=== PATIENT | female | born 1985 | race Caucasian/White ===

== ENCOUNTER 2025-03-07 22:02 | Emergency (ER) | payer SELFPAY ==
[~2025-03-07] VITALS: Ht 152.4 cm; Wt 69.4 kg
[2025-03-07 22:28] VITALS: TEMP 36.7; O2SAT 100
[2025-03-08] MEDS: LIDOCAINE 5% PATCH TOP STA (00:50)
[2025-03-08] MEDS: KETOROLAC 30MG/ML VIAL IM ONE (00:51)
[2025-03-08] MEDS: CYCLOBENZAPRINE 10MG TABLET PO ONE (00:57)
[2025-03-08] MEDS ORDERED: LIDO700A30 TP (01:22)
[2025-03-08] MEDS ORDERED: CYCL10TA21 MT (01:22)
[2025-03-08] MEDS ORDERED: IBUP-1455 MT (01:22)
[2025-03-08 01:31] VITALS: BP 138/78; PULSE 89; RESP 12; O2SAT 98
== END 2025-03-08 01:33 | disposition home or self-care (01) ==
LOC: ER 22:02
DX: S00.81XA Abrasion of other part of head, initial encounter (principal); S00.511A Abrasion of lip, initial encounter; S40.811A Abrasion of right upper arm, initial encounter; G44.309 Post-traumatic headache, unspecified, not intractable; D68.9 Coagulation defect, unspecified; D69.6 Thrombocytopenia, unspecified; Z90.49 Acquired absence of other specified parts of digestive tract; W19.XXXA Unspecified fall, initial encounter; Y93.89 Activity, other specified; Y92.89 Other specified places as the place of occurrence of the external cause; Y99.8 Other external cause status
CPT/HCPCS: 99283; 96372; J1885